=== PATIENT | female | born 1950 | race Caucasian/White ===

== ENCOUNTER → 2017-03-31 | Outpatient (CLI) | payer MEDICARE, BC ==
[~2017-03-31] MED LIST: ASPIRIN 32325 MG/TA1 PO; ASPIRIN 32325 MG/TAB PO; CALCIUM WITH VI1 TAB PO; HCTZ 25MG TAB25 MG; LIPITOR 10MG10 MG PO; LIVALO4 MG PO; NIASPAN 500MG500 MG PO; NITROSTAT0.4 MG/TAB SL; PLAVIX 75MG TAB75 MG PO; PREVACID PO; PRINIVIL2.5 MG PO; TOPROL XL 25MG25 MG PO
== END ==
LOC: COL.RAD 10:45
DX: I65.23 Occlusion and stenosis of bilateral carotid arteries (principal); I67.2 Cerebral atherosclerosis; R93.8 Abnormal findings on diagnostic imaging of other specified body structures
CPT/HCPCS: Q9967

== ENCOUNTER → 2017-09-02 | Outpatient (CLI) | payer MEDICARE, BC | LOC: MC.RAD 09:00 | DX: Z12.31 Encounter for screening mammogram for malignant neoplasm of breast (principal); N64.89 Other specified disorders of breast ==

== ENCOUNTER → 2017-09-10 | Outpatient (CLI) | payer MEDICARE, BC | LOC: MC.RAD 10:00 | DX: N64.89 Other specified disorders of breast (principal) ==

== ENCOUNTER → 2018-01-18 | Outpatient (CLI) | payer MEDICARE, BC | LOC: COL.RAD 07:55 | DX: I65.21 Occlusion and stenosis of right carotid artery (principal); I65.03 Occlusion and stenosis of bilateral vertebral arteries; R91.8 Other nonspecific abnormal finding of lung field | CPT/HCPCS: Q9967 ==

== ENCOUNTER → 2018-06-03 | Outpatient (CLI) | payer MEDICARE, BC | LOC: COL.PUL 07:42 | DX: J44.9 Chronic obstructive pulmonary disease, unspecified (principal); F17.210 Nicotine dependence, cigarettes, uncomplicated ==

== ENCOUNTER → 2018-06-04 | Outpatient (CLI) | payer MEDICARE, BC | LOC: COL.LAB 08:46 | DX: L97.911 Non-pressure chronic ulcer of unspecified part of right lower leg limited to breakdown of skin (principal); I70.213 Atherosclerosis of native arteries of extremities with intermittent claudication, bilateral legs; I87.2 Venous insufficiency (chronic) (peripheral) ==

== ENCOUNTER → 2018-06-07 | Outpatient (CLI) | payer MEDICARE, BC | LOC: COL.LAB 08:17 | DX: I70.213 Atherosclerosis of native arteries of extremities with intermittent claudication, bilateral legs (principal); I87.2 Venous insufficiency (chronic) (peripheral); L97.911 Non-pressure chronic ulcer of unspecified part of right lower leg limited to breakdown of skin ==

== ENCOUNTER → 2018-06-08 | Outpatient (CLI) | payer MEDICARE, BC | LOC: COL.LAB 08:20 | DX: I70.213 Atherosclerosis of native arteries of extremities with intermittent claudication, bilateral legs (principal); L97.911 Non-pressure chronic ulcer of unspecified part of right lower leg limited to breakdown of skin; I87.2 Venous insufficiency (chronic) (peripheral) ==

== ENCOUNTER 2019-10-12 17:27 | Inpatient (IN) | payer MEDICARE, BC ==
[2019-10-12] VITALS (236 sets, daily range): BP systolic 114; BP diastolic 61; PULSE 48; TEMP 98.1; O2SAT 73–99
[~2019-10-12] VITALS: Ht 170.2 cm; Wt 59.4 kg
[2019-10-12 18:58] LABS: BASO # 0.1 (0.0-0.2); EOS # 0.2 (0.0-0.7); EOS % 2.4 % (0-4.0); GRAN # 4.3 (1.4-6.5); GRAN % 61.9 % (42.2-75.2); HEMATOCRIT 33.3 % (37.0-47.0); HEMOGLOBIN 11.2 g/dl (12.5-16.0); LYMPH # 1.5 (1.2-3.4); LYMPH % 21.9 % (20.0-51.0); MEAN CELL VOLUME 94 fl (80.0-100.0); MEAN CORPUSCULAR HEMOGLOBIN 32 pg (27.0-31.0); MEAN CORPUSCULAR HGB CONC 34 g/dl (33.0-37.0); MEAN PLATELET VOLUME 10.4 fl (7.4-10.4); MONO # 0.9 (0.1-0.6); MONO % 12.4 % (1.7-9.3); PLATELET COUNT 222 K/mm3 (130-400); RED BLOOD COUNT 3.53 M/mm3 (4.10-5.30); REDCELL DISTRIBUTION WIDTH-CV 12.6 % (11.5-14.5)
[2019-10-12 19:03] LABS: CREATININE, serum 2.45 (0.52-1.25)
[2019-10-12 19:33] LABS: CALCIUM 12.6 mg/dL (8.4-10.2); POTASSIUM 2.7 mmol/L (3.4-5.0)
[2019-10-12 19:34] LABS: TROPONIN-I 0.051 ng/mL (0.000-0.035)
--- NOTE | 2019-10-12 19:36 | NUR ---
Bedside report given to DAWN chua.
[2019-10-12] MEDS ORDERED: ELIQUIS 5MG PO (22:28)
[2019-10-12] MEDS ORDERED: ALTACE 10MG TAB10 MG PO (22:31)
[2019-10-12] MEDS ORDERED: HCTZ12.5TAB PO (22:33)
[2019-10-12] MEDS ORDERED: ULTRAM 50MG TAB50 MG PO (22:36)
[2019-10-13] VITALS (797 sets, daily range): BP systolic 87–120; BP diastolic 52–60; PULSE 55–68; TEMP 97.7–98.2; O2SAT 68–100
[2019-10-13 06:30] LABS: POTASSIUM 2.9 mmol/L (3.4-5.0); TROPONIN-I 0.139 ng/mL (0.000-0.035)
--- NOTE | 2019-10-13 07:42 | NUR ---
PATIENT REPORT TO GEORGIA SEYMOUR
[2019-10-13 08:15] LABS: MEAN CELL VOLUME 95 fl (80.0-100.0); MEAN CORPUSCULAR HEMOGLOBIN 32 pg (27.0-31.0); MEAN CORPUSCULAR HGB CONC 34 g/dl (33.0-37.0); PLATELET COUNT 202 K/mm3 (130-400); RED BLOOD COUNT 3.15 M/mm3 (4.10-5.30); REDCELL DISTRIBUTION WIDTH-CV 12.6 % (11.5-14.5)
[2019-10-13 08:16] LABS: HEMATOCRIT 29.8 % (37.0-47.0)
[2019-10-13 08:18] LABS: PROTHROMBIN TIME 11.5 SECONDS (9.7-12.8)
[2019-10-13 08:20] LABS: CALCIUM 11.6 mg/dL (8.4-10.2); CREATININE, serum 2.05 (0.52-1.25); PARTIAL THROMBOPLASTIN TIME 30.8 SECONDS (26.0-37.0)
--- NOTE | 2019-10-13 10:54 | NUR ---
INSTRUMENT DESIGNER student met with the patient to discuss a discharge plan. The patient lives in [place] with her , Julio C. The patient has a cane and a walker, if needed and the patient reports independence with ADLs. The patient's PCP is Dr. Allen and patient receives medications from [facility] with no difficulties. The patient does not have advanced directives in the EMR but was interested in a DPOA-HC form. Form provided. The patient plans to return home upon discharge with Julio C or the patient's son, Ravi providing transportation. account services manager will continue to follow to ensure a safe discharge.
[2019-10-14] VITALS (1126 sets, daily range): BP systolic 98–143; BP diastolic 52–93; PULSE 49–87; TEMP 97.5–98.6; O2SAT 75–100
[2019-10-14 02:35] LABS: MEAN CELL VOLUME 94 fl (80.0-100.0); MEAN CORPUSCULAR HGB CONC 33 g/dl (33.0-37.0); MEAN PLATELET VOLUME 10.2 fl (7.4-10.4); PLATELET COUNT 213 K/mm3 (130-400); RED BLOOD COUNT 3.16 M/mm3 (4.10-5.30); REDCELL DISTRIBUTION WIDTH-CV 12.6 % (11.5-14.5)
[2019-10-14 02:36] LABS: HEMATOCRIT 29.7 % (37.0-47.0); HEMOGLOBIN 9.9 g/dl (12.5-16.0); MEAN CORPUSCULAR HEMOGLOBIN 31 pg (27.0-31.0)
[2019-10-14 02:39] LABS: PROTHROMBIN TIME 11.8 SECONDS (9.7-12.8)
[2019-10-14 02:45] LABS: CREATININE, serum 1.43 (0.52-1.25); POTASSIUM 3.3 mmol/L (3.4-5.0)
--- NOTE | 2019-10-14 08:59 | NUR ---
CALLED AND DISCUSSED PT'S BP IN THE 90'S AND HR IN THE 50'S. ORDER TO HOLD METOPROLOL AND RAMIPRIL. PLAN TO PROCEED WITH CARDIAC CATH AND 1300 TODAY. PT UPDATED ON PLAN.
--- NOTE | 2019-10-14 12:27 | NUR ---
Pt taken down to analyst microbiology lab.
--- NOTE | 2019-10-14 12:43 | NUR ---
SEE MERGE FOR MEDICATION ADMINISTRATION TIMES AND INTRA AND POST SEDATION ASSESSMENTS.
--- NOTE | 2019-10-14 13:25 | NUR ---
BEDSIDE HAND OFF REPORT GIVEN TO DAWN DUMONT. HEMOSTASIS NOTED. DRESSING TO R GROIN C/D/I. PT ALERT AND ORIENTED.
--- NOTE | 2019-10-14 13:40 | NUR ---
PT RETURNED FROM SENIOR TECH MANUFACTURING ENGINEERING. PT IS DROWSY BUT ORIENTED. PT PLACED BACK ON ICU MONITORS. PT IS SR ON TELE. PT'S VSS. PT HAS SITE TO RIGHT GROIN, CLEAN/DRY/INTACT WITH NO HEMATOMA. PT RE-EDUCATED ON BEDREST, NOT MOVING RIGHT LEG, HEAD DOWN, AND APPLYING PRESSURE WITH COUGHING. PT VERBALIZED UNDERSTANDING. WILL CONTINUE TO MONITOR.
--- NOTE | 2019-10-14 19:30 | NUR ---
Received report from DAWN Saravia.
[2019-10-15] VITALS (586 sets, daily range): BP systolic 113–134; BP diastolic 70–75; PULSE 57–63; TEMP 97.3–98; O2SAT 87–100
[2019-10-15 05:33] LABS: BASO # 0.1 (0.0-0.2); EOS # 0.2 (0.0-0.7); EOS % 3.6 % (0-4.0); GRAN # 3.8 (1.4-6.5); GRAN % 60.9 % (42.2-75.2); LYMPH # 1.5 (1.2-3.4); LYMPH % 24.2 % (20.0-51.0); MEAN CELL VOLUME 96 fl (80.0-100.0); MEAN CORPUSCULAR HGB CONC 33 g/dl (33.0-37.0); MEAN PLATELET VOLUME 10.1 fl (7.4-10.4); MONO # 0.6 (0.1-0.6); MONO % 10.1 % (1.7-9.3); PLATELET COUNT 214 K/mm3 (130-400); RED BLOOD COUNT 2.99 M/mm3 (4.10-5.30); REDCELL DISTRIBUTION WIDTH-CV 12.9 % (11.5-14.5)
[2019-10-15 05:34] LABS: HEMATOCRIT 28.7 % (37.0-47.0); HEMOGLOBIN 9.4 g/dl (12.5-16.0); MEAN CORPUSCULAR HEMOGLOBIN 31 pg (27.0-31.0)
[2019-10-15 05:38] LABS: CALCIUM 9.4 mg/dL (8.4-10.2); CREATININE, serum 1.23 (0.52-1.25); POTASSIUM 3.9 mmol/L (3.4-5.0)
--- NOTE | 2019-10-15 09:23 | NUR ---
PT SITTING IN CHAIR, C/O CHRONIC PSIN IN RIGHT CALF AT CURRENT ULCER SITE OF 03/11. REPORT THAT NOTHING RELIEVES IT. DR. SWAIN WAS AT BEDSIDE TO ASSESS PT STATUS AND AGREED TO D/C PT HOME WITH FAMILY. PT VSS AT THIS TIME, WILL COMPLETE D/C PAPER WORK AND UPDATE PROVIDERS NEEDED.
--- NOTE | 2019-10-15 11:19 | NUR ---
Pt d/c'ed home with family IV's removed, vss, pt denies any new pain. D/C paperwork explain and signature pages placed on chart. She states her understanding of meds and to f/u with cardiology clinic on Thursday, 10/18.
== END 2019-10-15 11:40 | disposition home or self-care (01) | DRG 281 ==
LOC: IMCU 17:27 → ICU 18:39
PROVIDERS: Psychiatry & Neurology Psychiatry; ADMIT Internal Medicine Interventional Cardiology
PROC: 4A023N7 Measurement of Cardiac Sampling and Pressure, Left Heart, Percutaneous Approach (ICD-10-PCS; principal; 2019-10-14)
PROC: B2111ZZ Fluoroscopy of Multiple Coronary Arteries using Low Osmolar Contrast (ICD-10-PCS; 2019-10-14)
DX: I21.A1 Myocardial infarction type 2 (principal); N17.9 Acute kidney failure, unspecified; L97.219 Non-pressure chronic ulcer of right calf with unspecified severity; I25.10 Atherosclerotic heart disease of native coronary artery without angina pectoris; I73.9 Peripheral vascular disease, unspecified; F17.200 Nicotine dependence, unspecified, uncomplicated; J44.9 Chronic obstructive pulmonary disease, unspecified; E86.0 Dehydration; E87.6 Hypokalemia
CPT/HCPCS: G0378; G0379; J1644; J2250; J3010; J3480; J7030

== ENCOUNTER → 2019-10-20 | Outpatient (CLI) | payer MEDICARE, BC ==
[~2019-10-20] MED LIST changes: +ALTACE 10MG TAB10 MG PO; +ELIQUIS 5MG PO; +HCTZ12.5TAB PO; +ULTRAM 50MG TAB50 MG PO
== END ==
LOC: MC.RAD 14:57
DX: Z12.31 Encounter for screening mammogram for malignant neoplasm of breast (principal)

== ENCOUNTER 2019-12-07 15:41 | Inpatient (IN) | payer MEDICARE, BC ==
[~2019-12-07] VITALS: Ht 167.6 cm; Wt 60.8 kg
[2019-12-07 16:05] LABS: BASO # 0.2 (0.0-0.2); BASO % 2.1 % (0.0-2.0); EOS # 0.3 (0.0-0.7); EOS % 3.6 % (0-4.0); GRAN # 4.9 (1.4-6.5); GRAN % 60.6 % (42.2-75.2); LYMPH # 1.5 (1.2-3.4); LYMPH % 18.6 % (20.0-51.0); MEAN CELL VOLUME 98 fl (80.0-100.0); MEAN CORPUSCULAR HGB CONC 32 g/dl (33.0-37.0); MONO # 1.2 (0.1-0.6); MONO % 14.7 % (1.7-9.3); PLATELET COUNT 266 K/mm3 (130-400); RED BLOOD COUNT 3.17 M/mm3 (4.10-5.30); REDCELL DISTRIBUTION WIDTH-CV 13.6 % (11.5-14.5)
[2019-12-07 16:06] LABS: HEMATOCRIT 31.2 % (37.0-47.0); HEMOGLOBIN 9.9 g/dl (12.5-16.0); MEAN CORPUSCULAR HEMOGLOBIN 31 pg (27.0-31.0)
[2019-12-07] MEDS ORDERED: HCTZ 25MG TAB25 MG PO (16:13)
[2019-12-07] MEDS ORDERED: ASPIRIN 81M81 MG/TA2 PO (16:13)
[2019-12-07 16:19] LABS: ALANINE AMINOTRANSFERASE 13 U/L (9-52); ALBUMIN 4.4 gm/dL (3.5-5.0); ALKALINE PHOSPHATASE 59 U/L (50-136); ANION GAP 13 mmol/L (7-16); AST,SGOT 42 U/L (15-37); BILIRUBIN,TOTAL 0.6 mg/dL (0.0-1.0); BLOOD UREA NITROGEN 61 mg/dL (7-17); CARBON DIOXIDE 33 mmol/L (22-30); CREATININE, serum 2.49 (0.52-1.25); GLUCOSE 114 mg/dL (74-106); SODIUM 133 mmol/L (137-145); TOTAL PROTEIN 7.6 gm/dL (6.4-8.2)
[2019-12-07 16:27] LABS: C-REACTIVE PROTEIN < 0.5 mg/dL (0.0-0.9); CALCIUM 14.7 mg/dL (8.4-10.2); CHLORIDE 87 mmol/L (98-107); POTASSIUM 2.9 mmol/L (3.4-5.0)
[2019-12-07] MEDS ORDERED: DEMADEX 20MG20 M1 PO (16:35)
--- NOTE | 2019-12-07 18:10 | NUR ---
Pt arrives to medical unit rm 351 from ED, awake and alert. IVF's infusing per orders through left AC site without s/s of complications. Pt denies current needs. Call light in reach.
[2019-12-07 18:13] VITALS: BP 91/50; PULSE 81; TEMP 97.7
--- NOTE | 2019-12-07 19:20 | NUR ---
Received report from Magali. Patient is awake, sitting in the recliner with relatives in the bedside. Patient has ongoing IVF NS at 200ml/hr on her left AC. Call light within reach.
--- NOTE | 2019-12-07 19:45 | NUR ---
Patient went down for x-ray asssited by Work in [employer] via wheelchair.
--- NOTE | 2019-12-07 20:00 | NUR ---
Patient went back to room from Radiology.
--- NOTE | 2019-12-07 20:05 | NUR ---
Patient states that she takes Tramadol for pain for her right leg every night. She can't recall the dosage. Informed Saige about the pain of the patient and updated med recon.
[2019-12-07] MEDS ORDERED: ULTRAM 50MG TAB50 MG PO (20:09)
--- NOTE | 2019-12-07 21:00 | NUR ---
Pamidronate is not yet available in the medicine area so this nurse informed her charge nurse and tried calling pharmacy but no one is answering. This nurse called perennial house manager Philip, if he can get the Pamidronate from Pharmacy.
--- NOTE | 2019-12-07 21:20 | NUR ---
Charge nurse Paula informed this nurse that Philip states that the Pharmacist told him that while they are mixing the medicine they found out that it was already and so no medicine available tonight. They said that they informed Dr. Crespo about it.
[2019-12-07 22:03] VITALS: BP 86/46; PULSE 68; TEMP 97.5
[2019-12-07 22:12] LABS: PH 7 (5-8); SQUAMOUS EPITHELIAL 0-2 /hpf; URINE APPEARANCE Clear; URINE BACTERIA None Seen /hpf; URINE BILIRUBIN Negative (NEGATIVE); URINE BLOOD Negative (NEGATIVE); URINE COLOR Straw; URINE GLUCOSE Negative (NEGATIVE); URINE KETONE Negative (NEGATIVE); URINE LEUKOCYTE ESTERASE Negative (NEGATIVE); URINE NITRATE Negative (NEGATIVE); URINE PROTEIN(semi-quant) Negative (NEGATIVE); URINE RBC None Seen /hpf; URINE UROBILINOGEN Negative (NEGATIVE); URINE WBC 0-2 /hpf
--- NOTE | 2019-12-07 22:30 | NUR ---
Mery from Lab called this nurse and states that some of the lab tests needed for the patient requires fasting and they will be able to do the extraction tamiko morning. Informed patient that she's on NPO by midnight just for the lab tests.
[2019-12-08] VITALS (7 sets, daily range): BP systolic 98–119; BP diastolic 45–59; PULSE 59–84; TEMP 97.6–98.4
[2019-12-08 00:52] LABS: COLLECTION METHOD CLEAN CATCH
--- NOTE | 2019-12-08 05:47 | NUR ---
Patient preferred to sleep in the recliner. Instructed patient to maintain NPO for her lab works in am. Patient has intermittent pain on right leg. Tylenol PRN given last night. Will endorse patient to day shift nurse.
[2019-12-08 08:27] LABS: BASO # 0.1 (0.0-0.2); BASO % 2.4 % (0.0-2.0); EOS # 0.3 (0.0-0.7); EOS % 6.8 % (0-4.0); GRAN # 2.1 (1.4-6.5); GRAN % 51.7 % (42.2-75.2); MEAN CELL VOLUME 100 fl (80.0-100.0); MEAN CORPUSCULAR HGB CONC 32 g/dl (33.0-37.0); MEAN PLATELET VOLUME 10.4 fl (7.4-10.4); MONO # 0.6 (0.1-0.6); MONO % 14.9 % (1.7-9.3); PLATELET COUNT 232 K/mm3 (130-400)
[2019-12-08 08:31] LABS: HEMATOCRIT 25.9 % (37.0-47.0); HEMOGLOBIN 8.2 g/dl (12.5-16.0); MEAN CORPUSCULAR HEMOGLOBIN 32 pg (27.0-31.0)
[2019-12-08 08:32] LABS: CALCIUM 12.5 mg/dL (8.4-10.2); CREATININE, serum 2.11 (0.52-1.25); POTASSIUM 3.6 mmol/L (3.4-5.0)
--- NOTE | 2019-12-08 09:26 | NUR ---
Assessment complete. Patient sitting in recliner. Awake, alert and oriented. BLE were ededamous and slightly pale but pedal pulses were palpable. Wound on her right lower monique, dressed in ER, pt requested that I do not unwrap it. States she gets some stabbing pain in at times but only takes medication for it at night, not during the day. IV site CD&I, IV fluids infusing @125 ml/hr. Potassium protocol still in place. No further needs were expressed at this time. Call light is within reach.
--- NOTE | 2019-12-08 09:49 | NUR ---
Initial visit; Patient thanked Cmm Operator for looking in on her and offering God''s blessings. Cmm Operator will follow up while patient is at [facility].
--- NOTE | 2019-12-08 15:13 | NUR ---
Mailroom Coordinator met with the patient to discuss discharge planning. Patient lives in [place] with her , Moisés (ph#[phone]) and sees Dr. Allen for primary care. Patient obtains medications from [facility] [address] with no difficulties. Patient uses a walker and no other DME. Patient reports independence with ADLS. Patient thinks she may have [facility] but isn't sure. Patient reports she drove herself to the hospital so she plans to drive herself home. SW to continue to follow as needed.
[2019-12-08 15:17] LABS: PTH,INTACT 17.6 pg/mL (6.6-88.9)
--- NOTE | 2019-12-08 18:27 | NUR ---
Patient had an uneventful day. Calcium level decreased to 12.5 which is a big improvement. She is hopeful that she can go home tomorrow. IV fluids still infusing @125. She has been up to restroom a couple times. No complaints of pain all day. Family was in with her earlier and inquired about her lab work, I explained that her calcium did come down and that we replaced her potassium. No further needs were expressed at this time. Call light is within reach.
--- NOTE | 2019-12-08 19:00 | NUR ---
Report received at bedside from daysnyft nurse. PT states that she would like to have her RLE dressing changed and dressing is noted to have moderate amount of drainage. PT denies pain or discomfort at this time but is concerned about pain with dressing changes and is emphatic that this contract writer "be careful" when changing it. This contract writer assures PT that utmost care will be taken to reduce risk of pain and educates PT that dressing change will take place after shift report, initial rounds, and any emergent needs are met. PT states understanding and replies that "whenever" the dressing change can be taken care of is fine with her. Call light within reach with PT sitting in recliner.
--- NOTE | 2019-12-08 21:30 | NUR ---
PT dressing to RLE changed using NS for wound cleanser, pat dry with guaze, apply telfa pad and secure with paper tape. PT tolerates dressing change well and denies any pain with dressing change. PT remains in stable condition with no s/s of distress noted. Will continue to monitor.
--- NOTE | 2019-12-09 02:46 | NUR ---
PT is resting peacefully in her recliner with eyes closed. Call light within reach and beverages on bedside tray within reach. Will continue to monitor.
[2019-12-09 03:53] VITALS: BP 117/54; PULSE 65; TEMP 97.8
[2019-12-09 06:52] LABS: BASO # 0.1 (0.0-0.2); BASO % 1.8 % (0.0-2.0); EOS # 0.3 (0.0-0.7); GRAN # 2.1 (1.4-6.5); GRAN % 48.3 % (42.2-75.2); LYMPH # 1.2 (1.2-3.4); LYMPH % 26.8 % (20.0-51.0); MEAN CELL VOLUME 101 fl (80.0-100.0); MEAN CORPUSCULAR HGB CONC 31 g/dl (33.0-37.0); MEAN PLATELET VOLUME 10.1 fl (7.4-10.4); MONO # 0.7 (0.1-0.6); MONO % 15.9 % (1.7-9.3); PLATELET COUNT 196 K/mm3 (130-400); RED BLOOD COUNT 2.58 M/mm3 (4.10-5.30); REDCELL DISTRIBUTION WIDTH-CV 14.1 % (11.5-14.5)
[2019-12-09 06:55] LABS: CALCIUM 11.1 mg/dL (8.4-10.2); CREATININE, serum 1.48 (0.52-1.25); POTASSIUM 3.3 mmol/L (3.4-5.0)
[2019-12-09 06:59] LABS: HEMATOCRIT 26.1 % (37.0-47.0); MEAN CORPUSCULAR HEMOGLOBIN 31 pg (27.0-31.0)
--- NOTE | 2019-12-09 07:06 | NUR ---
PT report given at bedside to Albina SEYMOUR
[2019-12-09 07:32] VITALS: BP 127/59; PULSE 69; TEMP 97.6
[2019-12-09 08:34] LABS: KAPPA FREE LIGHT CHAIN-SERUM 69.97 mg/L (()); KAPPA LAMBDA RATIO 2.26 ratio (())
[2019-12-09] MEDS ORDERED: K-DUR 10 MEQ T10 MEQ PO (09:25)
--- NOTE | 2019-12-09 12:16 | NUR ---
DISCHARGE INFORMATION PROVIDED TO PT. IV AND TELE REMOVED WITHOUT ISSUES. ALL QUESTIONS ANSWERED. DISCUSSED MED CHANGES AND UPCOMING APPOINTMENTS. PT SON PRESENT DURING DISCHARGE EDUCATION. ADMINISTERED ALL OF POTASSIUM TABLES PER PROTOCOL PRIOR TO DISCHARGE. THIS NURSE ESCORTED PT MADDIE TO HER VEHICLE.
[2019-12-12 11:26] LABS: A/G RATIO (PEP) 1.04 (()); BETA GLOBULINS (PEP) 0.7 g/dL (0.7-1.2)
== END 2019-12-09 11:40 | disposition home or self-care (01) | DRG 641 ==
LOC: COL.ER 15:41 → MEDICAL 16:47
PROVIDERS: Emergency Medicine; Physician Assistant; ADMIT Hospitalist
DX: E83.52 Hypercalcemia (principal); N17.9 Acute kidney failure, unspecified; E87.1 Hypo-osmolality and hyponatremia; E87.6 Hypokalemia; I25.10 Atherosclerotic heart disease of native coronary artery without angina pectoris; E78.00 Pure hypercholesterolemia, unspecified; I25.2 Old myocardial infarction; M85.80 Other specified disorders of bone density and structure, unspecified site; F17.210 Nicotine dependence, cigarettes, uncomplicated; Z88.1 Allergy status to other antibiotic agents; E83.39 Other disorders of phosphorus metabolism; R60.0 Localized edema; K59.00 Constipation, unspecified; I73.9 Peripheral vascular disease, unspecified; Z66 Do not resuscitate
CPT/HCPCS: 99223-AI; 99231-AI; 99239; J7030

== ENCOUNTER → 2019-12-14 | Outpatient (CLI) | payer MEDICARE, BC ==
[~2019-12-14] MED LIST changes: +ASPIRIN 81M81 MG/TA2 PO; +DEMADEX 20MG20 M1 PO; +HCTZ 25MG TAB25 MG PO; +K-DUR 10 MEQ T10 MEQ PO
== END ==
LOC: COL.RAD 10:00
DX: E83.52 Hypercalcemia (principal)

== ENCOUNTER 2020-01-23 07:12 | Outpatient (CLI) | payer MEDICARE, BC ==
[2020-01-23] VITALS (7 sets, daily range): BP systolic 91–127; BP diastolic 44–69; PULSE 73–112; TEMP 97.6–97.9
[~2020-01-23] VITALS: Ht 167.7 cm; Wt 62.3 kg
[2020-01-23] MEDS ORDERED: K-DUR 10 MEQ T10 MEQ PO (08:09)
[2020-01-23] MEDS ORDERED: FOLIC ACID800 MCG PO (08:10)
[2020-01-23] MEDS ORDERED: MASON NATURAL1200 MG PO (08:14)
[2020-01-23] MEDS ORDERED: COLACE 100100 MG/CAP PO (08:14)
--- NOTE | 2020-01-23 09:40 | NUR ---
TO RM 8 PER CART FROM PACU FOLLOWING A BONE MARROW BX. PER REPORT A-FIB DURING PROCEDURE. DR SIDDIQUI AND DR BAILEY CALLED PER MARIANNE SEYMOUR IN PACU. ALERT ORIENTED X3, TALKING TO STAFF. DENIES PAIN OR DISCOMFORT AT THIS TIME.
--- NOTE | 2020-01-23 09:55 | NUR ---
RECEIVED JHONNY AND JOHN THORPE.
--- NOTE | 2020-01-23 10:10 | NUR ---
ATE 100% AND TOLERATED WELL.
[2020-01-23 10:21] LABS: BASO # 0.1 (0.0-0.2); EOS % 0.7 % (0-4.0); GRAN % 68.8 % (42.2-75.2); LYMPH # 0.9 (1.2-3.4); LYMPH % 15.9 % (20.0-51.0); MEAN CELL VOLUME 95 fl (80.0-100.0); MEAN CORPUSCULAR HGB CONC 32 g/dl (33.0-37.0); MONO # 0.8 (0.1-0.6); MONO % 13.3 % (1.7-9.3); PLATELET COUNT 187 K/mm3 (130-400); RED BLOOD COUNT 2.65 M/mm3 (4.10-5.30); REDCELL DISTRIBUTION WIDTH-CV 14.6 % (11.5-14.5)
[2020-01-23 10:23] LABS: HEMATOCRIT 25.1 % (37.0-47.0); HEMOGLOBIN 7.9 g/dl (12.5-16.0); MEAN CORPUSCULAR HEMOGLOBIN 30 pg (27.0-31.0)
--- NOTE | 2020-01-23 10:30 | NUR ---
LAB RESULTS BACK- FAXED TO [facility] OFFICE AND [facility].
--- NOTE | 2020-01-23 10:45 | NUR ---
UPDATED SOL CALLED. ORDER TO SEND TO ER TO BE EVALUATED.
--- NOTE | 2020-01-23 10:58 | NUR ---
DR NUNO CALLED AND UPDATED AND PATIENT GOING TO ER, HE VERBALIZED UNDERSTANDING.
--- NOTE | 2020-01-23 11:07 | NUR ---
REPORT CALLED TO ER NURSE ZAIN
--- NOTE | 2020-01-23 11:20 | NUR ---
AMBULATED TO BATHROOM. VOIDED AND TOLERATED WELL. DRESSING OVER BONE MARROW BX SITE CLEAN DRY INTACT.
--- NOTE | 2020-01-23 11:32 | NUR ---
PATIENT TAKEN TO ER PER WC. CHECKED IN IN AT DESK.
== END 2020-01-23 11:19 | disposition home or self-care (01) ==
LOC: EUO 07:12 → SDCO 09:00 → EDSTATUS 09:00 → EUO 11:19
PROVIDERS: Pathology Anatomic Pathology & Clinical Pathology
DX: E83.52 Hypercalcemia (principal); D64.9 Anemia, unspecified
CPT/HCPCS: J2250; J2704; J3010

== ENCOUNTER 2020-01-23 13:11 | Outpatient (RCR) | payer MEDICARE, BC ==
[~2020-01-23 13:11] MED LIST changes: +COLACE 100100 MG/CAP PO; +FOLIC ACID800 MCG PO; +MASON NATURAL1200 MG PO
[2020-01-23 14:26] VITALS: BP 90/62; PULSE 70; TEMP 987.7
[2020-01-23 14:41] VITALS: BP 109/54; PULSE 77; TEMP 97.7
[2020-01-23 15:11] VITALS: BP 96/39; PULSE 71; TEMP 97.7
[2020-01-23 15:50] VITALS: BP 113/50; PULSE 70; TEMP 97.8
== END 2020-01-23 16:18 | disposition home or self-care (01) ==
LOC: EUO 13:11
DX: D64.9 Anemia, unspecified (principal); E83.52 Hypercalcemia
CPT/HCPCS: J7050; P9016

== ENCOUNTER → 2020-10-23 | Outpatient (CLI) | payer MEDICARE, BC | LOC: MC.RAD 13:15 | DX: Z12.31 Encounter for screening mammogram for malignant neoplasm of breast (principal) ==

== ENCOUNTER → 2021-03-12 | Outpatient (CLI) | payer MEDICARE, BC | LOC: COL.RAD 03-11 14:00 | DX: Z12.2 Encounter for screening for malignant neoplasm of respiratory organs (principal); R91.8 Other nonspecific abnormal finding of lung field; F17.210 Nicotine dependence, cigarettes, uncomplicated ==

== ENCOUNTER → 2021-11-28 | Outpatient (CLI) | payer MEDICARE, BC | LOC: MC.RAD 09:30 | DX: Z12.31 Encounter for screening mammogram for malignant neoplasm of breast (principal) ==

== ENCOUNTER → 2022-03-18 | Outpatient (CLI) | payer MEDICARE, BC | LOC: COL.RAD 13:01 | DX: Z12.2 Encounter for screening for malignant neoplasm of respiratory organs (principal); R91.8 Other nonspecific abnormal finding of lung field; F17.210 Nicotine dependence, cigarettes, uncomplicated ==